=== PATIENT | female | born 2005 | race Caucasian/White ===

== ENCOUNTER 2025-04-06 03:58 | Emergency (ER) | payer OTHER, SELFPAY ==
[2025-04-06 04:07] VITALS: BP 109/76
[2025-04-06 04:41] VITALS: BMI 33.9
[2025-04-06 05:02] VITALS: BP 134/88
[2025-04-06] MEDS: TORADOL 30 MG IM (05:03)
[2025-04-06 06:00] VITALS: BP 121/73
[2025-04-06] MEDS: NSS 1000 IV (06:50)
[2025-04-06] MEDS: ZOFRAN 4 MG IV (06:50)
[2025-04-06 07:05] LABS: Hematocrit 36.6 % (37.0-47.0); Hemoglobin 12.1 g/dL (12.0-16.0); Mean Corp Hgb Conc. 33.1 g/dL (33.0-37.0); Mean Corpuscular Volume 78.7 fL (81.0-99.0); Nucleated Red Blood Cells % 0 %; Platelet Count 251 10^3/uL (130-400); Red Cell Dist. Width 13.9 % (11.5-14.5)
--- NOTE | 2025-04-06 07:11 | ED.GENMED ---
History of Present Illness
<Tamera Moody PA-C - Last Filed: 04/07/25 14:22>
General
Chief Complaint: Flank Pain
Source: patient
Exam Limitations: none
Time Seen by Provider: 04/06/25 04:51
Nursing documentation reviewed up to this point in time: agreed with
History of Present Illness
History of Present Illness:
HPI:
20-year-old female with past medical history of kidney stone presents emergency department today with concerns of right side abdominal pain severe and waking her up from sleep. Patient never had inhalant this before. Patient reports that she has
had severe pain with kidney stones but she currently denies flank pain. Patient has associated nausea but no vomiting. No fevers or chills. She is currently on her menstrual period. She has no burning with urination, no urinary hesitancy, no
urinary frequency. She has no chest pain or shortness of breath. No constipation or diarrhea. She denies any sick contacts. She has no prior history of intra-abdominal surgeries. Has not required surgical intervention in the past for kidney
stones.
EXAM:
General: Patient is well appearing and in no acute distress; non-toxic
Skin: Warm and dry, no rashes or lesions
Head: Normocephalic, atraumatic
Eyes: Sclera non-icteric. EOMs intact.
Cardiac: Regular rate and rhythm, no murmurs
Pulm: Normal respiratory effort, no wheezes, rales, rhonchi
Abdomen: Diffuse right-sided abdominal tenderness to palpation with guarding, no palpable abdominal masses
Neuro: CN II-XII intact, no focal neurologic deficits.
Psychiatric: Appropriate mood and affect.
ED COURSE:
Multiple attempts to place IV were unsuccessful. Patient was given IM dose of Toradol which did help with her pain. IV team was called and patient will receive a midline.
7:00 AM--Case signed out to Anupam STEELE pending workup
NUMBER AND COMPLEXITY OF PROBLEMS ADDRESSED AT THE ENCOUNTER
� Chronic conditions affecting care: Past history of kidney stones
� Acute Exacerbation and/or Progression of Chronic Illness: N/A
� Differential Diagnosis includes:
Differentials include appendicitis, biliary colic, cholecystitis, diverticulitis, nephrolithiasis, gastroenteritis, menstrual cramping
AMOUNT AND/OR COMPLEXITY OF DATA TO BE REVIEWED AND ANALYZED
� I performed an independent evaluation of and my interpretation is:
EKG: No indication for EKG at this time
CT: Will send for CT of the abdomen pelvis with IV contrast.
X-rays: N/A
Laboratory Studies: Leukocytosis noted, CMP pending, urinalysis pending then, test pending
Other:
� Review of other/old records: No prior ER physician augmentation or discharge summaries to review
� Clinical information was obtained by an independent historian: History also provided by family
� Prescriptions/Medications Considered but not given: N/A
� Further testing considered but not performed:
N/A
RISK OF COMPLICATIONS AND/OR MORBIDITY OR MORTALITY OF PATIENT MANAGEMENT
� Social determinants of health affecting care: None
� Discussion with other providers: N/A
� Escalation of care including admission/observation vs risk of discharge considered:
Disposition pending
Review of Systems
<Tamera Moody PA-C - Last Filed: 04/07/25 14:22>
Review of Systems
All Other Systems: ROS reviewed and negative except as documented in HPI and ROS
Phy Exam
<Tamera Moody PA-C - Last Filed: 04/07/25 14:22>
Physical Exam
Physical Exam:
see hpi
Course
<Tamera Moody PA-C - Last Filed: 04/07/25 14:22>
Orders/Labs/Results
Orders:
Orders
04/06/25 04:18
Test Result ONCE
04/06/25 04:51
Ketorolac [Toradol] 30 mg IM NOW STA
04/06/25 05:01
0.9% Sodium Chloride 1000 ml [Nss] 1,000 ml IV BOLUS
Ondansetron Injectable [Zofran] 4 mg IV NOW STA
04/06/25 05:10
Complete Blood Count/With Diff Urgent
Comprehensive Metabolic Panel Urgent
HCG, Serum Qualitative Screen Urgent
04/06/25 05:25
CT Abd/pelvis W Iv Cont Urgent
Comment:
Reason For Exam: RLQ pain
04/06/25 08:21
Urinalysis Reflex To Culture Urgent
Date Specimen was Collected: 04/06/25
Time Specimen was Collected: 04:18
Urine Microscopic Reflex Cult Urgent
Chlamydia/GC by PCR Urgent
MANJU Source: U
Specimen Description:
Date Specimen was Collected: 04/06/25
Time Specimen was Collected: 04:18
04/06/25 08:29
HYDROmorphone [Dilaudid] 0.5 mg IV NOW STA
04/06/25 09:16
Add On - Microbiology Urgent
Tests Added?: urine gc/chlamydia
04/06/25 09:30
Ceftriaxone Sodium [Rocephin] 500 mg IM NOW STA
04/06/25 09:32
Doxycycline [Vibramycin] 100 mg PO NOW STA
04/06/25 10:33
Lidocaine HCl/Pf [Xylocaine-Mpf 1% Vial] 50 mg .ROUTE .STK-MED ONE
Abnormal Lab Results
04/06/25 04/06/25
05:10 08:21
WBC 12.8 H 10^3/uL
(4.8-10.8)
Hct 36.6 L %
(37.0-47.0)
MCV 78.7 L fL
(81.0-99.0)
MCH 26.0 L pg
(27.0-31.0)
Abs Immat Gran (auto) 0.1 H 10^3/uL
(0-0.05)
Absolute Neuts (auto) 9.8 H 10^3/uL
(1.4-6.5)
Neutrophils % 76.5 H %
(42.2-75.2)
Lymphocytes % 17.6 L %
(20.5-51.1)
Chloride 109 H mmol/L
(98-107)
Carbon Dioxide 20 L mmol/L
(22-30)
Glucose 103 H mg/dl
(70-99)
Ur Occult Blood Reflex 4+ A
(Negative)
Urine RBC 16-20 A /HPF
(0-2)
Urine Bacteria (Reflex) Few A
(Negative)
Urine Yeast Few A
(Negative)
04/06/25 05:10
04/06/25 05:10
Vital Signs
Initial and Last Documented VS:
Initial Vital Signs
Temp Pulse Resp BP Pulse Ox
97.5 F 82 14 109/76 98
04/06/25 04:07 04/06/25 04:07 04/06/25 04:07 04/06/25 04:07 04/06/25 04:07
Last Documented Vital Signs
Temp Pulse Resp BP Pulse Ox
98.2 F 82 18 111/86 99
04/06/25 06:38 04/06/25 06:38 04/06/25 06:38 04/06/25 10:00 04/06/25 10:30
Hectorlt;Cheo Saez PA-C - Last Filed: 04/06/25 10:22>
Orders/Labs/Results
Orders:
Orders
04/06/25 04:18
Test Result ONCE
04/06/25 04:51
Ketorolac [Toradol] 30 mg IM NOW STA
04/06/25 05:01
0.9% Sodium Chloride 1000 ml [Nss] 1,000 ml IV BOLUS
Ondansetron Injectable [Zofran] 4 mg IV NOW STA
04/06/25 05:10
Complete Blood Count/With Diff Urgent
Comprehensive Metabolic Panel Urgent
HCG, Serum Qualitative Screen Urgent
04/06/25 05:25
CT Abd/pelvis W Iv Cont Urgent
Comment:
Reason For Exam: RLQ pain
04/06/25 08:21
Urinalysis Reflex To Culture Urgent
Date Specimen was Collected: 04/06/25
Time Specimen was Collected: 04:18
Urine Microscopic Reflex Cult Urgent
Chlamydia/GC by PCR Urgent
MANJU Source: U
Specimen Description:
Date Specimen was Collected: 04/06/25
Time Specimen was Collected: 04:18
04/06/25 08:29
HYDROmorphone [Dilaudid] 0.5 mg IV NOW STA
04/06/25 09:16
Add On - Microbiology Urgent
Tests Added?: urine gc/chlamydia
04/06/25 09:30
Ceftriaxone Sodium [Rocephin] 500 mg IM NOW STA
04/06/25 09:32
Doxycycline [Vibramycin] 100 mg PO NOW STA
04/06/25 10:33
Lidocaine HCl/Pf [Xylocaine-Mpf 1% Vial] 50 mg .ROUTE .STK-MED ONE
Abnormal Lab Results
04/06/25 04/06/25
05:10 08:21
WBC 12.8 H 10^3/uL
(4.8-10.8)
Hct 36.6 L %
(37.0-47.0)
MCV 78.7 L fL
(81.0-99.0)
MCH 26.0 L pg
(27.0-31.0)
Abs Immat Gran (auto) 0.1 H 10^3/uL
(0-0.05)
Absolute Neuts (auto) 9.8 H 10^3/uL
(1.4-6.5)
Neutrophils % 76.5 H %
(42.2-75.2)
Lymphocytes % 17.6 L %
(20.5-51.1)
Chloride 109 H mmol/L
(98-107)
Carbon Dioxide 20 L mmol/L
(22-30)
Glucose 103 H mg/dl
(70-99)
Ur Occult Blood Reflex 4+ A
(Negative)
Urine RBC 16-20 A /HPF
(0-2)
Urine Bacteria (Reflex) Few A
(Negative)
Urine Yeast Few A
(Negative)
04/06/25 05:10
04/06/25 05:10
Vital Signs
Initial and Last Documented VS:
Initial Vital Signs
Temp Pulse Resp BP Pulse Ox
97.5 F 82 14 109/76 98
04/06/25 04:07 04/06/25 04:07 04/06/25 04:07 04/06/25 04:07 04/06/25 04:07
Last Documented Vital Signs
Temp Pulse Resp BP Pulse Ox
98.2 F 82 18 111/86 99
04/06/25 06:38 04/06/25 06:38 04/06/25 06:38 04/06/25 10:00 04/06/25 10:30
<Tamera Moody PA-C - Last Filed: 04/07/25 14:22>
*Pulse Oximetry
SaO2: 97
Oxygen Mode of Delivery: Room air
Patient hypoxic: no
*Critical Care Note
Total Time (30-74mins, 75-104mins- exclusive of procedures): Not Applicable
<Cheo Saez PA-C - Last Filed: 04/06/25 10:22>
Update Note
Update Note:
Received care of patient upon signout pending CT of abdomen. CT demonstrates normal appendix no active kidney stone but there is pelvic free fluid and mild inflammation around the pelvis to suggest pelvic inflammatory disease. Patient is sexually
active not using protection. Urine gonorrhea chlamydia test were added on. Will treat empirically with Rocephin and doxycycline pending results.
ED Attending Note
<Tamera Moody PA-C - Last Filed: 04/07/25 14:22>
-
Portions of this chart may have been created with voice recognition software.� Occasional wrong word or��sound alike� substitutions may have occurred due to the inherent limitations of voice recognition software.
Discharge Plan
Departure
Patient Disposition: Home (Routine Discharge)
Date of Disposition: 04/06/25
Time of Disposition: 09:34
Patient with high blood pressure during this ER visit?: No
Discharge Problem:
Abdominal pain
Instructions: Abdominal pain in adults (DC), Pelvic Inflammatory Disease
Prescriptions:
New
doxycycline hyclate 100 mg capsule
100 mg PO BID Qty: 20 0RF
Referrals:
Anyi Ordaz CRNP [Family Provider, Family Practice]
Stand Alone Forms: Back to School
Activity Restrictions/Additional Instructions:
Take antibiotics as directed. Use protection with intercourse. There are several test pending. You should receive a call if these tests are positive. Return if needed
Interventions
Interventions:
*Risk Screen - Suicide Last Done: 04/06/25 04:07
*General Assessment Last Done: 04/06/25 04:56
*Neglect/Abuse Screening Last Done: 04/06/25 04:56
*ED- Fall Risk Assessment Last Done: 04/06/25 04:56
*ED COVID-19 Vaccine History Last Done: 04/06/25 04:56
*Nursing Disposition Last Done: 04/06/25 10:55
EZ-Cnwevv-Cifzwnascx Assessment Last Done: 04/06/25 04:58
ED-Female Genitourinary Assessment Last Done: 04/06/25 04:58
Discharge Date and Time
Discharge Date/Time: 04/06/25 11:10
Print Language: TANZANIAN
[2025-04-06 07:12] LABS: HCG, Serum Qualitative Screen Negative
[2025-04-06 07:16] LABS: ALT (SGPT) 15 U/L (0-35); AST (SGOT) 19 U/L (14-36); Albumin 4.0 g/dl (3.5-5.0); Alkaline Phosphatase 85 U/L (38-126); Blood Urea Nitrogen 16 mg/dl (7-17); Calcium 9.4 mg/dl (8.4-10.2); Carbon Dioxide 20 mmol/L (22-30); Chloride 109 mmol/L (98-107); Estimated Creatinine Clearance > 125 ml/min; Glucose 103 mg/dl (70-99); Potassium 4.3 mmol/L (3.5-5.1); Sodium 138 mmol/L (135-145); Total Protein 7.2 g/dl (6.3-8.2); eGFR > 60.00
[2025-04-06 08:23] VITALS: BP 126/87
[2025-04-06] MEDS: DILAUDID 0.5 MG IV (08:34)
[2025-04-06 08:42] LABS: Urine Character Clear (Clear)
[2025-04-06 09:00] VITALS: BP 125/87
[2025-04-06 09:31] LABS: Urine Squamous Cell >30 /LPF (Few)
[2025-04-06 09:33] LABS: Urine Red Blood Cell 16-20 /HPF (0-2)
[2025-04-06 10:00] VITALS: BP 111/86
[2025-04-06] MEDS: VIBRAMYCIN 100 MG PO (10:39)
[2025-04-06] MEDS: ROCEPHIN 500 MG IM (10:39)
--- NOTE | 2025-04-06 11:46 | VATNOTE ---
Midline D/C'd w/ 10cm TCL retrieved. Pressure dressing applied.
== END 2025-04-06 11:10 | disposition home or self-care (01) ==
LOC: EMR 03:58
PROVIDERS: EMERGENCY PHYSICIAN Student in an Organized Health Care Education/Training Program; FAMILY PHYSICIAN Nurse Practitioner Family
DX: R10.9 Unspecified abdominal pain (principal); N91.2 Amenorrhea, unspecified; Z87.441 Personal history of nephrotic syndrome; Z87.442 Personal history of urinary calculi
CPT/HCPCS: 99284; 96374; 96375; 96372; 74177; 80053; 81003; 81015; 84703; 85025; 87491; 87591; Q9967

== ENCOUNTER 2025-04-11 00:59 | Emergency (ER) | payer OTHER, SELFPAY ==
[2025-04-11 01:01] VITALS: BP 135/92
[2025-04-11] MEDS: TORADOL 60 MG IM (01:34)
--- NOTE | 2025-04-11 01:34 | ED.GENMED ---
History of Present Illness
<VICKIE Bajwa - Last Filed: 04/11/25 03:43>
General
Chief Complaint: Female [employer]/Gu symptoms
Source: patient and family (Mother)
Exam Limitations: none
Time Seen by Provider: 04/11/25 01:12
Nursing documentation reviewed up to this point in time: agreed with
History of Present Illness
History of Present Illness:
Patient is a 20 year old female who presents with 10/10 right lower quadrant pain that began this morning. Patient was seen in the ED five days ago with similar symptoms. She was empirically treated for PID while awaiting CT/GC results, which are
negative. Patient states the pain went away briefly and suddenly returned accompanied by nausea with no vomiting. Denies urinary or bowel symptoms.
Past History
<VICKIE Bajwa - Last Filed: 04/11/25 03:43>
Past History
ED Past Medical History: None
ED Past Surgical History: None
Patient has exhibited threatening behavior?: No
Social History
Personal: Single
Living: with family
Review of Systems
<VICKIE Bajwa - Last Filed: 04/11/25 03:43>
Review of Systems
Allergies reviewed?: Yes
All Other Systems: ROS reviewed and negative except as documented in HPI and ROS
Constitutional: Reports no symptoms
EENT: Reports no symptoms
Respiratory: Reports no symptoms
Cardiac: Reports no symptoms
ABD/GI: Reports abdominal pain (Right lower quadrant pain) and nausea; Denies diarrhea
: Denies dysuria, flank pain, bleeding or discharge
Musculoskeletal: Reports no symptoms
Skin: Reports no symptoms
Neurological: Reports no symptoms
Phy Exam
<VICKIE Bajwa - Last Filed: 04/11/25 03:43>
General Physical Exam
General Presentation: moderate distress
General Skin: warm and dry
General Habitus: normal
General Mental: alert
Cardiovascular Exam
Cardiovascular Exam: normal peripheral pulses
Pulmonary Exam
Pulmonary Exam: lungs clear
Musculoskeletal Exam
Musculoskeletal Exam: full ROM
Course
<Kiya Fernandez, STPA - Last Filed: 04/11/25 03:43>
Orders/Labs/Results
Orders:
Orders
04/11/25 01:31
Test Result ONCE
04/11/25 01:32
Ketorolac [Toradol] 60 mg IM NOW STA
US Pelvis W Transvag Combined Urgent
Comment:
Reason For Exam: severe RLQ pain, recurrent
04/11/25 01:33
Renal & Bladder US [US Renal With Bladder] Urgent
Comment:
Reason For Exam: severe RLQ pain. hx of kidney stones
04/11/25 02:00
0.9% Sodium Chloride 1000 ml [Nss] 1,000 ml IV BOLUS
04/11/25 02:03
Complete Blood Count/With Diff Urgent
Comprehensive Metabolic Panel Urgent
HCG, Serum Qualitative Screen Urgent
Lactic Acid Urgent
04/11/25 03:32
CT Abd/pelvis W Iv Cont Urgent
Comment:
Reason For Exam: acute recurrent, severe RLQ pain
04/11/25 04:13
Urinalysis Reflex To Culture Urgent
Date Specimen was Collected: 04/11/25
Time Specimen was Collected: 04:10
Urine Microscopic Reflex Cult Urgent
Urine Culture Urgent
MANJU Source: U
Specimen Description:
Date Specimen was Collected: 04/11/25
Time Specimen was Collected: 04:10
04/11/25 04:40
Acetaminophen 1000MG/100Ml [Ofirmev] 1,000 mg in 100 ml IV ONCE
Acetaminophen IV Indication:: ED Narcotic Naive Pt-ONCE
04/11/25 05:20
Tamsulosin [Flomax] 0.4 mg PO NOW STA
Abnormal Lab Results
04/11/25 04/11/25
02:03 04:13
WBC 16.0 H 10^3/uL
(4.8-10.8)
MCV 77.8 L fL
(81.0-99.0)
MCH 26.0 L pg
(27.0-31.0)
Abs Immat Gran (auto) 0.1 H 10^3/uL
(0-0.05)
Absolute Neuts (auto) 12.9 H 10^3/uL
(1.4-6.5)
Neutrophils % 80.7 H %
(42.2-75.2)
Lymphocytes % 15.0 L %
(20.5-51.1)
Glucose 110 H mg/dl
(70-99)
Ur Occult Blood Reflex 4+ A
(Negative)
Urine RBC 60-70 A /HPF
(0-2)
Urine Bacteria (Reflex) Many A
(Negative)
04/11/25 02:03
04/11/25 02:03
Vital Signs
Initial and Last Documented VS:
Initial Vital Signs
Temp Pulse Resp BP Pulse Ox
97.5 F 94 20 135/92 96
04/11/25 01:01 04/11/25 01:01 04/11/25 01:01 04/11/25 01:01 04/11/25 01:01
Last Documented Vital Signs
Temp Pulse Resp BP Pulse Ox
97.5 F 96 18 135/92 100
04/11/25 01:01 04/11/25 04:49 04/11/25 04:49 04/11/25 01:01 04/11/25 04:49
<Sherrell Brothers, DO - Last Filed: 04/11/25 05:26>
Orders/Labs/Results
Orders:
Orders
04/11/25 01:31
Test Result ONCE
04/11/25 01:32
Ketorolac [Toradol] 60 mg IM NOW STA
US Pelvis W Transvag Combined Urgent
Comment:
Reason For Exam: severe RLQ pain, recurrent
04/11/25 01:33
Renal & Bladder US [US Renal With Bladder] Urgent
Comment:
Reason For Exam: severe RLQ pain. hx of kidney stones
04/11/25 02:00
0.9% Sodium Chloride 1000 ml [Nss] 1,000 ml IV BOLUS
04/11/25 02:03
Complete Blood Count/With Diff Urgent
Comprehensive Metabolic Panel Urgent
HCG, Serum Qualitative Screen Urgent
Lactic Acid Urgent
04/11/25 03:32
CT Abd/pelvis W Iv Cont Urgent
Comment:
Reason For Exam: acute recurrent, severe RLQ pain
04/11/25 04:13
Urinalysis Reflex To Culture Urgent
Date Specimen was Collected: 04/11/25
Time Specimen was Collected: 04:10
Urine Microscopic Reflex Cult Urgent
Urine Culture Urgent
MANJU Source: U
Specimen Description:
Date Specimen was Collected: 04/11/25
Time Specimen was Collected: 04:10
04/11/25 04:40
Acetaminophen 1000MG/100Ml [Ofirmev] 1,000 mg in 100 ml IV ONCE
Acetaminophen IV Indication:: ED Narcotic Naive Pt-ONCE
04/11/25 05:20
Tamsulosin [Flomax] 0.4 mg PO NOW STA
Abnormal Lab Results
04/11/25 04/11/25
02:03 04:13
WBC 16.0 H 10^3/uL
(4.8-10.8)
MCV 77.8 L fL
(81.0-99.0)
MCH 26.0 L pg
(27.0-31.0)
Abs Immat Gran (auto) 0.1 H 10^3/uL
(0-0.05)
Absolute Neuts (auto) 12.9 H 10^3/uL
(1.4-6.5)
Neutrophils % 80.7 H %
(42.2-75.2)
Lymphocytes % 15.0 L %
(20.5-51.1)
Glucose 110 H mg/dl
(70-99)
Ur Occult Blood Reflex 4+ A
(Negative)
Urine RBC 60-70 A /HPF
(0-2)
Urine Bacteria (Reflex) Many A
(Negative)
04/11/25 02:03
04/11/25 02:03
Vital Signs
Initial and Last Documented VS:
Initial Vital Signs
Temp Pulse Resp BP Pulse Ox
97.5 F 94 20 135/92 96
04/11/25 01:01 04/11/25 01:01 04/11/25 01:01 04/11/25 01:01 04/11/25 01:01
Last Documented Vital Signs
Temp Pulse Resp BP Pulse Ox
97.5 F 96 18 135/92 100
04/11/25 01:01 04/11/25 04:49 04/11/25 04:49 04/11/25 01:01 04/11/25 04:49
<VICKIE Bajwa - Last Filed: 04/11/25 03:43>
MDM/Problems Addressed
Differential Diagnosis Includes:
ovarian torsion, ruptured ovarian cyst, ectopic
<VICKIE Bajwa - Last Filed: 04/11/25 03:43>
*Pulse Oximetry
SaO2: 96
Oxygen Mode of Delivery: Room air
Patient hypoxic: no
*Critical Care Note
Total Time (30-74mins, 75-104mins- exclusive of procedures): Not Applicable
ED Attending Note
<VICKIE Bajwa - Last Filed: 04/11/25 03:43>
-
Portions of this chart may have been created with voice recognition software.� Occasional wrong word or��sound alike� substitutions may have occurred due to the inherent limitations of voice recognition software.
<Sherrell Brothers DO - Last Filed: 04/11/25 05:26>
ED Attending Note
Patient seen and examined by attending physician: Yes
I performed the substantive portion of visit, reviewed & personally made and approve the management plan that is documented in note by myself or KATHY.: Yes
ED Attending Note:
This is a 20-year-old female with history of kidney stones who presents with abrupt onset of severe right lower quadrant pain that began this evening. Right lower quadrant pain feels different from previous episodes of renal colic. She presented
to this ED April 06 with very similar severe right lower quadrant pain. Laboratory studies were remarkable for mildly elevated white blood cell count of 12.8. Unremarkable chemistries. Urinalysis positive for microscopic blood but patient had
her menstrual period [address] abdomen pelvis showed normal appendix. Minimal free fluid in the pelvis with mild inflammation. Concern for potential pelvic inflammatory disease. There was also note of a 3 mm calculus in the right kidney
with no evidence of obstruction. Due to concern for potential PID she was started on doxycycline. Urine GC/chlamydia however have since returned negative. No prior history of PID.
She states pain completely resolved during that ED visit and has not recurred until tonight with abrupt onset of recurrent severe right lower quadrant pain.
20-year-old female appears her stated age, awake and alert, moderately anxious. Vital signs within normal limits. Mother is accompanying.
HEENT: Oral mucosa is moist.
Neck is supple nontender
Heart is regular rate and rhythm.
Lungs are clear to auscultation. Respirations are easy and nonlabored.
Abdomen is soft, nondistended, moderate tenderness right lower quadrant without rebound or guarding nor rigidity. No CVA tenderness. No palpable masses. Normoactive bowel sounds.
Extremities without clubbing or cyanosis no edema. Nontender. Well-perfused.
Skin is warm and dry, normal color, good turgor.
Acute recurrent severe right lower quadrant pain. Concern for renal colic/ureteric stone, ovarian torsion, ovarian cyst. PID is unlikely, especially with negative GC chlamydia testing just 5 days ago.
Acute appendicitis is unlikely. Unremarkable imaging of the appendix 5 days ago.
Will medicate for pain with an IM dose of Toradol.
Will check labs, reassess hCG but likely not related pain as hCG was -5 days ago. She has been compliant with oral contraceptives.
Will plan for pelvic ultrasound as well as renal ultrasound.
05:15
Renal and pelvic ultrasound are unremarkable. Patient had been pain-free after an IM dose of Toradol but abrupt severe right lower quadrant pain has since returned. Thus CT abdomen pelvis obtained which shows a 3 mm stone at the right UVJ with
very minimal hydronephrosis.
Upon review of CT from 5 days ago it appears that there is a small stone, nonobstructing in the distal right ureter. Likely patient has been experiencing intermittent renal colic related to this 3 mm ureteric stone that is progressing down her
ureter, now at the right UVJ.
She is again comfortable and pain-free after an IV dose of Tylenol.
Labs show mildly elevated white blood cell count. She remains afebrile. No UTI symptoms.
Urinalysis shows 60-70 RBCs. Many bacteria but only 3-5 WBCs and again is a contaminated specimen with greater than 30 squamous epithelial cells. Not consistent with UTI.
Will discharge to home with a prescription for as needed Toradol, as needed Zofran. She has been given a one-time dose of Flomax.
Discussed importance of staying well-hydrated on a daily basis.
Follow-up with urologist as needed.
Return precautions discussed.
Discharge Plan
Departure
Patient Disposition: Home (Routine Discharge)
Date of Disposition: 04/11/25
Time of Disposition: 05:21
Patient with high blood pressure during this ER visit?: No
Condition: Good
Discharge Problem:
Calculus of distal left ureter
Instructions: Kidney stone diet, Kidney stones in adults - ED (DC)
Prescriptions:
New
ketorolac 10 mg tablet
10 mg PO QID PRN (Reason: pain) Qty: 20 0RF
ondansetron 4 mg tablet,disintegrating
4 mg PO QID PRN (Reason: nausea and vomiting) Qty: 20 0RF
Discontinued
doxycycline hyclate 100 mg capsule
100 mg PO BID Qty: 20 0RF
Referrals:
Anyi Ordaz CRNP [Family Provider, Family Practice]
Stand Alone Forms: Back to School
Activity Restrictions/Additional Instructions:
Stay well-hydrated on a daily basis.
Follow-up with your urologist for recheck as needed.
Remember our motto, no glove, no love.
Interventions
Interventions:
*Risk Screen - Suicide Last Done: 04/11/25 01:37
*General Assessment Last Done: 04/11/25 02:14
*Neglect/Abuse Screening Last Done: 04/11/25 01:37
*ED- Fall Risk Assessment Last Done: 04/11/25 01:37
*ED COVID-19 Vaccine History Last Done: 04/11/25 01:37
ED-Female Genitourinary Assessment Last Done: 04/11/25 02:11
Discharge Date and Time
Print Language: SINGAPOREAN
[2025-04-11 02:03] VITALS: BMI 33.7
[2025-04-11] MEDS: NSS 1000 IV (02:07)
[2025-04-11 02:18] LABS: Hematocrit 38.9 % (37.0-47.0); Hemoglobin 13.0 g/dL (12.0-16.0); Mean Corp Hgb Conc. 33.4 g/dL (33.0-37.0); Mean Corpuscular Volume 77.8 fL (81.0-99.0); Nucleated Red Blood Cells % 0 %; Platelet Count 229 10^3/uL (130-400); Red Cell Dist. Width 13.7 % (11.5-14.5)
[2025-04-11 02:30] LABS: ALT (SGPT) 15 U/L (0-35); AST (SGOT) 17 U/L (14-36); Albumin 4.2 g/dl (3.5-5.0); Alkaline Phosphatase 101 U/L (38-126); Blood Urea Nitrogen 16 mg/dl (7-17); Calcium 9.0 mg/dl (8.4-10.2); Carbon Dioxide 22 mmol/L (22-30); Chloride 107 mmol/L (98-107); Estimated Creatinine Clearance 120 ml/min; Glucose 110 mg/dl (70-99); HCG, Serum Qualitative Screen Negative; Potassium 4.3 mmol/L (3.5-5.1); Sodium 140 mmol/L (135-145); Total Protein 7.5 g/dl (6.3-8.2); eGFR > 60.00
[2025-04-11 04:29] LABS: Urine Character Clear (Clear)
[2025-04-11 04:44] LABS: Urine Squamous Cell >30 /LPF (Few)
[2025-04-11] MEDS: OFIRMEV 100 IV (04:44)
[2025-04-11 04:45] LABS: Urine Red Blood Cell 60-70 /HPF (0-2)
[2025-04-11] MEDS: FLOMAX 0.4 MG PO (05:29)
== END 2025-04-11 05:43 | disposition home or self-care (01) ==
LOC: EMR 00:59
PROVIDERS: EMERGENCY PHYSICIAN Emergency Medicine; FAMILY PHYSICIAN Nurse Practitioner Family
DX: N13.2 Hydronephrosis with renal and ureteral calculous obstruction (principal); R10.31 Right lower quadrant pain; Z87.441 Personal history of nephrotic syndrome; Z87.442 Personal history of urinary calculi
CPT/HCPCS: 99284; 74177; 76770; 76830; 76856; 80053; 81003; 81015; 83605; 84703; 85025; 87086; Q9967

== ENCOUNTER 2025-04-15 06:20 | Day surgery (SDC) | payer OTHER, SELFPAY ==
--- NOTE | 2025-04-14 10:55 | PTCARENOTE ---
Abnormal WBC and urine collected 04/11/[address] Kayla at Dr Craven's office.
[2025-04-15] VITALS (10 sets, daily range): BP systolic 96–131; BP diastolic 66–84
[2025-04-15] MEDS: NORMOSOL-R/PLASMALYTE-A 1000 IV (11:53)
[2025-04-15] MEDS: DETROL LA 4 MG PO (13:49)
[2025-04-23 13:25] LABS: Stone Analysis Mass 17 mg
== END 2025-04-15 15:05 | disposition home or self-care (01) ==
LOC: SDS 06:20
PROVIDERS: ATTENDING PHYSICIAN Surgery
DX: N13.2 Hydronephrosis with renal and ureteral calculous obstruction (principal)
CPT/HCPCS: 52356; 74018; 76000; 82365; C2617